=== PATIENT | female | born 1955 | race Caucasian/White ===

== ENCOUNTER 2017-10-02 11:30 | Inpatient (IN) | payer OTHER ==
[~2017-10-02] VITALS: Ht 165.1 cm; Wt 101.5 kg
[~2017-10-02 11:30] MED LIST: ACETAMINOPHEN325 M1 PO; ALL DAY ALLERGY10 M3 PO; ALTACE10 MG PO; ALTACE5 MG PO; ASCORBIC ACID500 M3 PO; ASPIRIN325 MG PO; ASPIRIN81 M2 PO; ATORVASTATIN CA40 MG PO; BACTRIM,SEPT1 TABLET PO; BENADRYL25 MG PO; CALCIUM CARB1 TABLET PO; CEFEPIME HCL2 GM IV; CENTANY30 GM TP; CEPHALEXIN500 MG PO; CETIRIZINE HCL10 M2 PO; CILOSTAZOL50 MG PO; CIPRO500 MG PO; CLARITIN,ALAVAR10 MG PO; CLEOCIN300 MG PO; DAPSONE100 MG PO; DAPSONE25 MG PO; DILAUDID1 MG/ML IV; DILAUDID2 MG PO; DOCUSATE SODIU100 MG PO; ENDOCET 5-3251 EACH PO; EXTRA STRENGTH500 M1 PO; FENOFIBRIC ACI135 MG PO; FOLIC ACID1 MG PO; GABAPENTIN100 MG PO; GLIPIZIDE XL10 MG PO; HUMALOG KWIKPEN; HUMALOG100 UNIT/2 SC; HYDROCODON-ACE1 EAC7 PO; INSULIN GLARGINE; JANUMET 50/11 TABLET PO; JANUVIA25 M1 PO; LAMISIL AT TP; LANTUS 3 M100 UNITS1 SC; LASIX40 MG PO; LEVEMIR100 UNIT/2 SC; LIPITOR80 MG PO; LISINOPRIL10 MG PO; LOVENOX40 MG/0.4 SC; MILK OF MAGNESI10 ML PO; MUPIROCIN22 GM TP; MYLICON,MYLANTA80 MG PO; NORCO 5/3251 TABLET PO; NOVOLOG PE100 UNITS/ SC; OXYCODONE-APAP1 EACH PO; PERCOCET 5/31 TABLET PO; POLYETHYLENE GL17 GM PO; PREDNISONE10 MG PO; PREDNISONE5 MG PO; SANTYL30 GM TP; SERTRALINE HCL25 MG PO; TEMOVATE 0.05%30 GM TP; THERAGRAN1 TABLET PO; TRAMADOL HCL50 MG PO; TRILIPIX135 MG PO; TYLENOL REGULA325 MG PO; ULTRAM50 MG PO; VICODIN HP 10-1 EACH PO; VITAMIN D31000 UNI2 PO; VITAMIN E400 UNIT PO; ZOLOFT25 MG PO; ZOLOFT50 MG PO; Zeasorb Antifungal Treatment,Mitrazol Powder TP; [UNRECOGNIZED DRUG - OTHER] PO
[2017-10-02 13:04] LABS: EOSINOPHIL (%) 1.3 % (0-5); HEMATOCRIT 28.5 % (36.0-46.0); IMMATURE GRANULOCYTE (%) 2.9 % (0.0-0.7); IMMATURE GRANULOCYTE COUNT 0.1 K/uL; INSTRUMENT ABS NEUTROPHIL CT 2.9 K/uL; LYMPHOCYTE COUNT 0.1 K/uL (1.0-2.8); MCH 27.4 PG (29.0-34.0); MCHC 29.8 G/DL (30.0-36.0); MCV 91.9 FL (83-99); MEAN PLAT.VOLUME 11.2 uM^3 (9.5-12.4); MONOCYTE (%) 0.6 % (3-12); NEUTROPHIL COUNT 2.9 K/uL (1.8-6.4); NRBC (%) 0.6 /100 WBC (0-0); PLATELET COUNT 143 K/uL (156-360); RBC DIS.WIDTH-CV 17.8 % (11.8-14.6); RBC DIS.WIDTH-SD 59.5 % (39-53); WHITE BLOOD COUNT 3.1 K/uL (4.1-10.2)
[2017-10-02 13:11] LABS: CHLORIDE 108 mEq/L (99-109); POTASSIUM 4.1 mEq/L (3.7-5.4); SODIUM 142 mEq/L (136-147)
[2017-10-02 13:12] LABS: GLUCOSE 106 mg/dL (70-99)
[2017-10-02 13:14] LABS: ANION GAP 10 MEQ/L (2-14)
[2017-10-02 13:16] LABS: GFR ESTIMATE (CALCULATED) > 59 mL/min/
[2017-10-02 13:17] LABS: UREA NITROGEN (BUN) 19 mg/dL (9-23)
[2017-10-02 13:21] LABS: TROP-I INTERPRETATION NEGATIVE; TROPONIN-I 0.01 ng/mL (0.0-0.30)
[2017-10-02 13:37] LABS: INTER. NORMALIZED RATIO 1.3; PROTHROMBIN TIME 14.6 SEC (10.2-12.9)
[2017-10-02 13:40] LABS: PTT 27.5 SEC (25-37)
[2017-10-02] MEDS ORDERED: GABAPENTIN100 MG PO (16:22)
[2017-10-02] MEDS ORDERED: MULTI VITAMIN1 EACH PO (16:33)
[2017-10-02 16:49] LABS: TROP-I INTERPRETATION NEGATIVE; TROPONIN-I 0.01 ng/mL (0.0-0.30)
[2017-10-02 18:20] VITALS: BP 103/51
[2017-10-02 19:30] VITALS: BP 101/52
[2017-10-02 21:35] LABS: POINT-OF-CARE METER ID UU14174216
[2017-10-02 22:24] LABS: TROP-I INTERPRETATION NEGATIVE; TROPONIN-I 0.03 ng/mL (0.0-0.30)
[2017-10-02 23:55] VITALS: BP 109/55
[2017-10-03 03:20] VITALS: BP 120/59
[2017-10-03 05:37] LABS: HEMATOCRIT 27.1 % (36.0-46.0); MCHC 29.5 G/DL (30.0-36.0); MCV 91.6 FL (83-99); MEAN PLAT.VOLUME 13.2 uM^3 (9.5-12.4); PLATELET COUNT 132 K/uL (156-360); RBC DIS.WIDTH-CV 17.9 % (11.8-14.6); RBC DIS.WIDTH-SD 59.1 % (39-53); RED BLOOD COUNT 2.96 M/uL (3.80-5.20); WHITE BLOOD COUNT 5.7 K/uL (4.1-10.2)
[2017-10-03 06:01] LABS: ANION GAP 6 MEQ/L (2-14); CHLORIDE 105 MEQ/L (99-109); GFR ESTIMATE (CALCULATED) 48 mL/min/; GLUCOSE 128 mg/dL (70-99); POTASSIUM 3.8 MEQ/L (3.7-5.4); SAMPLE HEMOLYSIS CHECK 0; SAMPLE ICTERIC CHECK 0; SAMPLE LIPEMIA CHECK 0; SODIUM 137 MEQ/L (136-147); UREA NITROGEN (BUN) 23 mg/dL (9-23)
[2017-10-03 07:44] LABS: POINT-OF-CARE METER ID UU14174216
[2017-10-03 09:27] VITALS: BP 114/56
[2017-10-03 09:45] LABS: DIRECT BILIRUBIN 0.5 mg/dL (0.0-0.3); TOTAL BILIRUBIN 0.7 MG/DL (0.0-1.0)
[2017-10-03 09:51] LABS: ALKALINE PHOSPHATASE 111 IU/L (3-129)
[2017-10-03 09:57] LABS: IMM.RETIC FRACTION 17.4 % (3-19); RETIC HGB EQUIVALENT 30.6 (28-36); RETICULOCYTE COUNT 2.3 % (0.5-1.8)
[2017-10-03 10:30] LABS: IRON 26 MCG/DL (35-150)
[2017-10-03 11:15] LABS: FERRITIN 165 NG/ML (10-291)
[2017-10-03 11:42] LABS: POINT-OF-CARE METER ID UU14174216
[2017-10-03 13:25] VITALS: BP 106/51
[2017-10-03 16:21] LABS: POINT-OF-CARE METER ID UU14174216
[2017-10-03 16:34] VITALS: BP 99/53
[2017-10-03 20:27] VITALS: BP 106/55
[2017-10-03 21:22] LABS: POINT-OF-CARE METER ID UU13113698; POINT-OF-CARE USER ID ENVMNS
[2017-10-03 23:28] VITALS: BP 103/53
[2017-10-04 05:13] VITALS: BP 117/58
[2017-10-04 06:02] LABS: EOSINOPHIL (%) 6.3 % (0-5); EOSINOPHIL COUNT 0.3 K/uL (0-0.3); HEMATOCRIT 27.9 % (36.0-46.0); IMMATURE GRANULOCYTE (%) 0.6 % (0.0-0.7); INSTRUMENT ABS NEUTROPHIL CT 2.9 K/uL; LYMPHOCYTE COUNT 0.9 K/uL (1.0-2.8); MCHC 29.7 G/DL (30.0-36.0); MCV 90.9 FL (83-99); MEAN PLAT.VOLUME 13.1 uM^3 (9.5-12.4); MONOCYTE COUNT 0.7 K/uL (0-0.8); NEUTROPHIL (%) 59.5 % (45-76); NEUTROPHIL COUNT 2.9 K/uL (1.8-6.4); RBC DIS.WIDTH-CV 17.6 % (11.8-14.6); RBC DIS.WIDTH-SD 58.5 % (39-53); RED BLOOD COUNT 3.07 M/uL (3.80-5.20); WHITE BLOOD COUNT 4.9 K/uL (4.1-10.2)
[2017-10-04 06:04] LABS: PLATELET COUNT 174 K/uL (156-360)
[2017-10-04 06:37] LABS: ANION GAP 8 MEQ/L (2-14); CHLORIDE 102 MEQ/L (99-109); SAMPLE HEMOLYSIS CHECK 0; SAMPLE ICTERIC CHECK 0; SAMPLE LIPEMIA CHECK 0; SODIUM 135 MEQ/L (136-147); TOTAL BILIRUBIN 0.5 MG/DL (0.0-1.0)
[2017-10-04 06:53] LABS: ALKALINE PHOSPHATASE 108 IU/L (3-129); GFR ESTIMATE (CALCULATED) 34 mL/min/; GLUCOSE 117 mg/dL (70-99); UREA NITROGEN (BUN) 32 mg/dL (9-23)
[2017-10-04 08:01] LABS: POINT-OF-CARE METER ID UU14314088
[2017-10-04 08:15] VITALS: BP 107/61
[2017-10-04 11:38] LABS: POINT-OF-CARE METER ID UU14174216
[2017-10-04 12:07] VITALS: BP 112/56
[2017-10-04 16:00] VITALS: BP 105/57
[2017-10-04 16:34] LABS: POINT-OF-CARE METER ID UU13113698
[2017-10-04 19:40] VITALS: BP 105/58
[2017-10-04 21:02] LABS: POINT-OF-CARE METER ID UU14314088
[2017-10-04 23:30] VITALS: BP 115/59
[2017-10-05] VITALS (7 sets, daily range): BP systolic 92–130; BP diastolic 54–67
[2017-10-05 05:26] LABS: ADD MIUA? YES; BILIRUBIN NEGATIVE; BLOOD SMALL; COLOR YELLOW ((YELLOW)); GLUCOSE (STRIP) NEGATIVE; KETONES NEGATIVE; LEUKOCYTES SMALL; NITRITE POSITIVE; PROTEIN (STRIP) NEGATIVE; SPECIFIC GRAVITY 1.015 (1.000-1.030); UROBILINOGEN 0.2 MG/DL (0.2-1.0)
[2017-10-05 05:47] LABS: BACTERIA 1+ /HPF; EPITHELIAL CELLS RARE /HPF; MUCUS TRACE /LPF; RED BLOOD CELLS 0-5 /HPF (0-5); UCUL ADDED? YES
[2017-10-05 06:00] LABS: EOSINOPHIL COUNT 0.4 K/uL (0-0.3); HEMATOCRIT 26.7 % (36.0-46.0); IMMATURE GRANULOCYTE (%) 0.9 % (0.0-0.7); INSTRUMENT ABS NEUTROPHIL CT 2.6 K/uL; LYMPHOCYTE COUNT 0.9 K/uL (1.0-2.8); MCH 27.3 PG (29.0-34.0); MCV 91.1 FL (83-99); MEAN PLAT.VOLUME 13.3 uM^3 (9.5-12.4); MONOCYTE (%) 12.6 % (3-12); MONOCYTE COUNT 0.6 K/uL (0-0.8); NEUTROPHIL (%) 57.2 % (45-76); NEUTROPHIL COUNT 2.6 K/uL (1.8-6.4); PLATELET COUNT 143 K/uL (156-360); RBC DIS.WIDTH-CV 17.6 % (11.8-14.6); RBC DIS.WIDTH-SD 58.7 % (39-53); RED BLOOD COUNT 2.93 M/uL (3.80-5.20); WHITE BLOOD COUNT 4.5 K/uL (4.1-10.2)
[2017-10-05 07:09] LABS: ANION GAP 8 MEQ/L (2-14); CHLORIDE 100 MEQ/L (99-109); SODIUM 135 MEQ/L (136-147)
[2017-10-05 07:10] LABS: ALKALINE PHOSPHATASE 108 IU/L (3-129); GFR ESTIMATE (CALCULATED) 48 mL/min/; GLUCOSE 94 mg/dL (70-99); SAMPLE HEMOLYSIS CHECK 0; SAMPLE ICTERIC CHECK 0; SAMPLE LIPEMIA CHECK 0; TOTAL BILIRUBIN 0.5 MG/DL (0.0-1.0); UREA NITROGEN (BUN) 29 mg/dL (9-23)
[2017-10-05 07:51] LABS: POINT-OF-CARE METER ID UU13113781
[2017-10-05 11:13] LABS: POINT-OF-CARE METER ID UU13113781
[2017-10-05 16:35] LABS: POINT-OF-CARE METER ID UU13113781
[2017-10-05 20:52] LABS: POINT-OF-CARE METER ID UU13113781
[2017-10-06 03:21] VITALS: BP 119/56
[2017-10-06 06:57] LABS: POINT-OF-CARE METER ID UU14314084
[2017-10-06 07:02] LABS: Estimated Average Glucose 91 mg/dL (70-123)
[2017-10-06 07:04] LABS: HEMOGLOBIN A1c (GLYCOHEMOGLOB) 4.8 % HGB (Below 5.7)
[2017-10-06 07:35] VITALS: BP 130/60
[2017-10-06 07:47] LABS: EOSINOPHIL (%) 8.7 % (0-5); EOSINOPHIL COUNT 0.4 K/uL (0-0.3); HEMATOCRIT 25.9 % (36.0-46.0); IMMATURE GRANULOCYTE (%) 0.7 % (0.0-0.7); INSTRUMENT ABS NEUTROPHIL CT 2.7 K/uL; LYMPHOCYTE COUNT 0.7 K/uL (1.0-2.8); MCH 27.2 PG (29.0-34.0); MCHC 29.7 G/DL (30.0-36.0); MCV 91.5 FL (83-99); MEAN PLAT.VOLUME 11.5 uM^3 (9.5-12.4); MONOCYTE (%) 11.4 % (3-12); MONOCYTE COUNT 0.5 K/uL (0-0.8); NEUTROPHIL (%) 62.7 % (45-76); NEUTROPHIL COUNT 2.7 K/uL (1.8-6.4); NRBC (%) 0.5 /100 WBC (0-0); PLATELET COUNT 149 K/uL (156-360); RBC DIS.WIDTH-CV 17.2 % (11.8-14.6); RBC DIS.WIDTH-SD 56.6 % (39-53); RED BLOOD COUNT 2.83 M/uL (3.80-5.20); WHITE BLOOD COUNT 4.4 K/uL (4.1-10.2)
[2017-10-06 08:12] LABS: ALKALINE PHOSPHATASE 124 IU/L (3-129); ANION GAP 4 MEQ/L (2-14); CHLORIDE 104 MEQ/L (99-109); GFR ESTIMATE (CALCULATED) > 59 mL/min/; GLUCOSE 99 mg/dL (70-99); POTASSIUM 4.4 MEQ/L (3.7-5.4); SAMPLE HEMOLYSIS CHECK 0; SAMPLE ICTERIC CHECK 0; SAMPLE LIPEMIA CHECK 0; SODIUM 137 MEQ/L (136-147); TOTAL BILIRUBIN 0.5 MG/DL (0.0-1.0); UREA NITROGEN (BUN) 27 mg/dL (9-23)
[2017-10-06 11:16] LABS: POINT-OF-CARE METER ID UU14314084
[2017-10-06 13:59] LABS: HEMATOCRIT 28.2 % (36.0-46.0); MCV 92.2 FL (83-99)
[2017-10-06 16:01] VITALS: BP 110/60
[2017-10-06 17:09] LABS: POINT-OF-CARE METER ID UU14314084
[2017-10-06 20:22] VITALS: BP 109/56
[2017-10-06 21:40] LABS: POINT-OF-CARE METER ID UU14162508
[2017-10-06 23:37] VITALS: BP 110/59
[2017-10-07 04:02] VITALS: BP 112/62
[2017-10-07 06:21] LABS: POINT-OF-CARE METER ID UU14208750
[2017-10-07 07:15] LABS: EOSINOPHIL (%) 7.2 % (0-5); EOSINOPHIL COUNT 0.3 K/uL (0-0.3); HEMATOCRIT 28.8 % (36.0-46.0); IMMATURE GRANULOCYTE (%) 1.2 % (0.0-0.7); IMMATURE GRANULOCYTE COUNT 0.1 K/uL; INSTRUMENT ABS NEUTROPHIL CT 2.8 K/uL; LYMPHOCYTE COUNT 0.6 K/uL (1.0-2.8); MCHC 29.2 G/DL (30.0-36.0); MCV 92.6 FL (83-99); MEAN PLAT.VOLUME 13.1 uM^3 (9.5-12.4); MONOCYTE (%) 10.6 % (3-12); MONOCYTE COUNT 0.4 K/uL (0-0.8); NEUTROPHIL COUNT 2.8 K/uL (1.8-6.4); PLATELET COUNT 163 K/uL (156-360); RBC DIS.WIDTH-CV 17.2 % (11.8-14.6); RBC DIS.WIDTH-SD 57.4 % (39-53); RED BLOOD COUNT 3.11 M/uL (3.80-5.20); WHITE BLOOD COUNT 4.2 K/uL (4.1-10.2)
[2017-10-07 07:19] VITALS: BP 115/56
[2017-10-07 07:54] LABS: ALKALINE PHOSPHATASE 116 IU/L (3-129); ANION GAP 2 MEQ/L (2-14); CHLORIDE 101 MEQ/L (99-109); GFR ESTIMATE (CALCULATED) > 59 mL/min/; GLUCOSE 85 mg/dL (70-99); POTASSIUM 4.2 MEQ/L (3.7-5.4); SAMPLE HEMOLYSIS CHECK 0; SAMPLE ICTERIC CHECK 0; SAMPLE LIPEMIA CHECK 0; SODIUM 136 MEQ/L (136-147); TOTAL BILIRUBIN 0.5 MG/DL (0.0-1.0); UREA NITROGEN (BUN) 22 mg/dL (9-23)
[2017-10-07] MEDS ORDERED: LISINOPRIL2.5 MG PO (11:19)
[2017-10-07] MEDS ORDERED: LASIX20 MG PO (11:19)
[2017-10-07] MEDS ORDERED: LOPRESSOR25 MG PO (11:19)
[2017-10-07 11:28] VITALS: BP 108/58
[2017-10-07 11:46] LABS: POINT-OF-CARE METER ID UU14314084
== END 2017-10-07 15:52 | disposition home or self-care (01) | DRG 291 ==
LOC: EME 11:30 → EDOF 15:41 → 4EAST 15:41 → ENRESERV 15:43 → 4EAST 18:11 → ENRESERV 10-05 21:57 → 2EAST 10-05 22:49
PROVIDERS: Emergency Medicine; Hospitalist
DX: I50.21 Acute systolic (congestive) heart failure (principal); S81.801A Unspecified open wound, right lower leg, initial encounter; I11.0 Hypertensive heart disease with heart failure; E78.5 Hyperlipidemia, unspecified; K42.9 Umbilical hernia without obstruction or gangrene; R91.8 Other nonspecific abnormal finding of lung field; J96.01 Acute respiratory failure with hypoxia; E11.51 Type 2 diabetes mellitus with diabetic peripheral angiopathy without gangrene; I42.9 Cardiomyopathy, unspecified; D63.8 Anemia in other chronic diseases classified elsewhere; E66.9 Obesity, unspecified; N17.9 Acute kidney failure, unspecified; R06.82 Tachypnea, not elsewhere classified; Q81.9 Epidermolysis bullosa, unspecified; Z82.49 Family history of ischemic heart disease and other diseases of the circulatory system; Z80.7 Family history of other malignant neoplasms of lymphoid, hematopoietic and related tissues; Z89.512 Acquired absence of left leg below knee; Z79.82 Long term (current) use of aspirin; Z79.84 Long term (current) use of oral hypoglycemic drugs; Z68.37 Body mass index [BMI] 37.0-37.9, adult; Z85.3 Personal history of malignant neoplasm of breast; Z79.899 Other long term (current) drug therapy; Z99.3 Dependence on wheelchair; I95.9 Hypotension, unspecified
CPT/HCPCS: 71010; 71275; 80048; 80053; 80076; 81003; 82607; 82728; 82746; 82948; 83036; 83540; 83880; 84466; 84484; 85014; 85018; 85025; 85025 91; 85027; 85045; 85379; 85610; 85730; 87077; 87086; 87186; 93005; 93306; 94010; 94640; 94799; 96375; 96413; 99202; 99281; 99285; A6260; J0696; J1100; J1200; J1650; J1815; J1940; J2930; J7040; J7050; J9310

== ENCOUNTER 2018-02-25 22:28 | Observation (INO) | payer OTHER ==
[~2018-02-25] VITALS: Ht 165.1 cm; Wt 92.8 kg
[~2018-02-25 22:28] MED LIST changes: +ADULT ASPIRIN R81 MG PO; +LASIX20 MG PO; +LISINOPRIL2.5 MG PO; +LOPRESSOR25 MG PO; +MULTI VITAMIN1 EACH PO
[2018-02-25 23:12] LABS: HEMATOCRIT 24.9 % (36.0-46.0); HEMOGLOBIN 7.6 G/DL (11.9-15.5); MCH 26.6 PG (29.0-34.0); MCHC 30.5 G/DL (30.0-36.0); MCV 87.1 FL (83-99); PLATELET COUNT 186 K/uL (156-360); RBC DIS.WIDTH-CV 18.6 % (11.8-14.6); RBC DIS.WIDTH-SD 58.3 % (39-53); RED BLOOD COUNT 2.86 M/uL (3.80-5.20); WHITE BLOOD COUNT 4.6 K/uL (4.1-10.2)
[2018-02-25 23:22] LABS: ALBUMIN 2.5 g/dL (3.2-4.8); CHLORIDE 111 mEq/L (99-109); SODIUM 140 mEq/L (136-147)
[2018-02-25 23:24] LABS: GLUCOSE 166 mg/dL (70-99); TOTAL PROTEIN 7.1 g/dL (6.4-8.3)
[2018-02-25 23:26] LABS: TOTAL BILIRUBIN 0.3 mg/dL (0.0-1.0)
[2018-02-25 23:28] LABS: ALKALINE PHOSPHATASE 235 IU/L (3-129); CREATININE 1.7 mg/dL (0.6-1.3); GFR ESTIMATE (CALCULATED) 32 mL/min/
[2018-02-25 23:29] LABS: UREA NITROGEN (BUN) 46 mg/dL (9-23)
[2018-02-25 23:30] LABS: AST (GOT) 33 IU/L (2-34)
[2018-02-25 23:31] LABS: ALT (GPT) 24 IU/L (3-49); LIPASE 81 U/L (1.0-51.0)
[2018-02-25 23:33] LABS: POTASSIUM 6.5 mEq/L (3.7-5.4)
[2018-02-25 23:34] LABS: TROP-I INTERPRETATION NEGATIVE; TROPONIN-I < 0.01 ng/mL (0.0-0.30)
[2018-02-26] MEDS ORDERED: ZESTRIL2.5 MG PO (01:09)
[2018-02-26] MEDS ORDERED: METOPROLOL TART50 MG PO (01:09)
[2018-02-26] MEDS ORDERED: ZYRTEC10 M3 PO (01:10)
[2018-02-26] MEDS ORDERED: PREDNISONE10 MG PO (01:11)
[2018-02-26 03:12] LABS: CHLORIDE 111 mEq/L (99-109); POTASSIUM 5.8 mEq/L (3.7-5.4); SODIUM 140 mEq/L (136-147)
[2018-02-26 03:16] LABS: GLUCOSE 107 mg/dL (70-99)
[2018-02-26 03:17] LABS: CREATININE 1.5 mg/dL (0.6-1.3); GFR ESTIMATE (CALCULATED) 37 mL/min/
[2018-02-26 03:18] LABS: UREA NITROGEN (BUN) 43 mg/dL (9-23)
[2018-02-26 05:14] LABS: APPEARANCE SL.HAZY ((CLEAR)); BILIRUBIN NEGATIVE; BLOOD SMALL; COLOR YELLOW ((YELLOW)); GLUCOSE (STRIP) NEGATIVE; KETONES NEGATIVE; LEUKOCYTES NEGATIVE; NITRITE NEGATIVE; PROTEIN (STRIP) 30; SPECIFIC GRAVITY 1.019 (1.000-1.030); UROBILINOGEN 0.2 MG/DL (0.2-1.0)
[2018-02-26 05:22] LABS: BACTERIA NONE SEEN /HPF; EPITHELIAL CELLS RARE /HPF; MUCUS TRACE /LPF; UCUL ADDED? NO; WHITE BLOOD CELLS 0-5 /HPF (0-5)
[2018-02-26 12:39] LABS: TROP-I INTERPRETATION NEGATIVE; TROPONIN-I 0.01 ng/mL (0.0-0.30)
[2018-02-26 13:29] VITALS: BP 131/60
[2018-02-26 13:52] VITALS: BP 143/74
[2018-02-26 18:18] LABS: TROP-I INTERPRETATION NEGATIVE; TROPONIN-I 0.06 ng/mL (0.0-0.30)
[2018-02-26 19:00] VITALS: BP 114/56
[2018-02-26 23:39] VITALS: BP 131/61
[2018-02-27] VITALS (10 sets, daily range): BP systolic 110–152; BP diastolic 59–71
[2018-02-27 01:09] LABS: TROP-I INTERPRETATION NEGATIVE; TROPONIN-I 0.04 ng/mL (0.0-0.30)
[2018-02-27 06:11] LABS: HEMATOCRIT 23.6 % (36.0-46.0); HEMOGLOBIN 7.1 G/DL (11.9-15.5); MCH 26.6 PG (29.0-34.0); MCHC 30.1 G/DL (30.0-36.0); MCV 88.4 FL (83-99); PLATELET COUNT 193 K/uL (156-360); RBC DIS.WIDTH-CV 19.4 % (11.8-14.6); RBC DIS.WIDTH-SD 61.8 % (39-53); RED BLOOD COUNT 2.67 M/uL (3.80-5.20); WHITE BLOOD COUNT 3.8 K/uL (4.1-10.2)
[2018-02-27 07:12] LABS: CHLORIDE 107 MEQ/L (99-109); CREATININE 1.3 MG/DL (0.6-1.3); GFR ESTIMATE (CALCULATED) 44 mL/min/; GLUCOSE 83 mg/dL (70-99); POTASSIUM 5.8 MEQ/L (3.7-5.4); SODIUM 134 MEQ/L (136-147); UREA NITROGEN (BUN) 33 mg/dL (9-23)
[2018-02-27 12:26] LABS: HEMOGLOBIN 7.2 G/DL (11.9-15.5); MCV 88.9 FL (83-99)
[2018-02-27 22:23] LABS: CHLORIDE 106 MEQ/L (99-109); CREATININE 1.3 MG/DL (0.6-1.3); GFR ESTIMATE (CALCULATED) 44 mL/min/; SODIUM 135 MEQ/L (136-147); UREA NITROGEN (BUN) 32 mg/dL (9-23)
[2018-02-27 22:42] LABS: HEMATOCRIT 26.1 % (36.0-46.0); HEMOGLOBIN 7.8 G/DL (11.9-15.5); MCV 87.6 FL (83-99)
[2018-02-27 22:44] LABS: GLUCOSE 133 mg/dL (70-99); POTASSIUM 4.6 MEQ/L (3.7-5.4)
[2018-02-28 04:15] VITALS: BP 126/64
[2018-02-28 08:48] VITALS: BP 111/56
[2018-02-28] MEDS ORDERED: TRAMADOL HCL50 MG PO (11:20)
[2018-02-28 12:02] VITALS: BP 153/69
== END 2018-02-28 13:36 | disposition home or self-care (01) ==
LOC: EME 22:28 → EDOF 02-26 04:36 → 5WEST 02-26 04:36 → ENRESERV 02-26 04:37 → 5WEST 02-26 13:26
PROVIDERS: Emergency Medicine; Hospitalist; Internal Medicine; Nurse Practitioner Adult Health
DX: R07.9 Chest pain, unspecified (principal); N17.9 Acute kidney failure, unspecified; E87.5 Hyperkalemia; R06.09 Other forms of dyspnea; I11.0 Hypertensive heart disease with heart failure; I50.22 Chronic systolic (congestive) heart failure; D63.8 Anemia in other chronic diseases classified elsewhere; D50.9 Iron deficiency anemia, unspecified; E11.69 Type 2 diabetes mellitus with other specified complication; Q81.9 Epidermolysis bullosa, unspecified; Z86.19 Personal history of other infectious and parasitic diseases; R26.89 Other abnormalities of gait and mobility; Z89.512 Acquired absence of left leg below knee; R21 Rash and other nonspecific skin eruption; K42.9 Umbilical hernia without obstruction or gangrene; E11.51 Type 2 diabetes mellitus with diabetic peripheral angiopathy without gangrene; E78.5 Hyperlipidemia, unspecified; D68.9 Coagulation defect, unspecified; E66.9 Obesity, unspecified; Z82.49 Family history of ischemic heart disease and other diseases of the circulatory system; Z80.7 Family history of other malignant neoplasms of lymphoid, hematopoietic and related tissues; Z88.0 Allergy status to penicillin; Z91.048 Other nonmedicinal substance allergy status; Z99.3 Dependence on wheelchair; Z66 Do not resuscitate; Z79.4 Long term (current) use of insulin
CPT/HCPCS: 71045; 74176; 78582; 80048; 80048 91; 80053; 81003; 83690; 84132 91; 84484; 85014; 85018; 85027; 85379; 86850; 86900; 86901; 86920; 93005; 99281; 99285; A6214; A9540; A9567; G0378; J0610; J1644; J1940; J3010; J7030; J7050; J7512; P9016